=== PATIENT | female | born 1950 | race Native Hawaiian/Other Pacific Islander ===

== ENCOUNTER → 2021-04-25 | Outpatient (CLI) | payer MEDICARE, MEDICAID ==
[2021-04-25 08:55] LABS: CALCIUM 10.1 mg/dL (8.4-10.2); CREATININE, serum 0.81 mg/dL (0.57-1.11); POTASSIUM 4.6 mmol/L (3.5-4.5)
[2021-04-25 16:20] LABS: CORTISOL, AM (0800) 1 ug/dL (3-20)
== END ==
LOC: COL.LAB 07:39
PROVIDERS: Urology
DX: E27.8 Other specified disorders of adrenal gland (principal)

== ENCOUNTER 2021-05-18 12:07 | Day surgery (SDC) | payer MEDICARE, MEDICAID ==
[~2021-05-18] VITALS: Ht 134.6 cm; Wt 80.3 kg
[2021-05-18] VITALS (82 sets, daily range): BP systolic 101–142; BP diastolic 54–85; PULSE 73–100; TEMP 98.1–99.2; O2SAT 94–98
[2021-05-18] MEDS ORDERED: COZAAR100 MG PO (12:53)
[2021-05-18] MEDS ORDERED: TOPROL XL 25MG25 MG PO (12:54)
[2021-05-18] MEDS ORDERED: ASPIRIN E.C. 8181 MG PO (12:55)
[2021-05-18] MEDS ORDERED: GARLIC100 MG PO (12:56)
[2021-05-18] MEDS ORDERED: TYLENOL 500MG500 MG PO (12:57)
[2021-05-18 12:58] LABS: HEMATOCRIT 43.5 % (37.0-47.0); HEMOGLOBIN 13.9 g/dl (12.5-16.0); MEAN CELL VOLUME 90 fl (80.0-100.0); MEAN CORPUSCULAR HEMOGLOBIN 29 pg (27-31); MEAN CORPUSCULAR HGB CONC 32 g/dl (33.0-37.0); MEAN PLATELET VOLUME 10.1 fl (7.4-10.4); PLATELET COUNT 241 K/mm3 (130-400); RED BLOOD COUNT 4.83 M/mm3 (4.10-5.30); REDCELL DISTRIBUTION WIDTH-CV 13.2 % (11.5-14.5)
[2021-05-18 13:08] LABS: INR 1.1 (0.8-3.0); PROTHROMBIN TIME 12.6 SECONDS (9.7-12.8)
[2021-05-18 13:11] LABS: PARTIAL THROMBOPLASTIN TIME 27.9 SECONDS (26.0-37.0)
[2021-05-18 13:13] LABS: CALCIUM 9.5 mg/dL (8.4-10.2); CREATININE, serum 0.84 mg/dL (0.57-1.11); POTASSIUM 4.4 mmol/L (3.5-4.5)
--- NOTE | 2021-05-18 18:30 | NUR ---
PATIENT CAME OVER FROM [facility] AT APPROX 1545; TWO [employer] NURSES ACCOMPANIED THE PATIENT OVER AND REMAINED IN THE ROOM UNTIL APPROX 1700. PATIENT WAS IN STABLE CONDITION UPON ARRIVAL TO THE UNIT WITH PRESSURES SLIGHTLY ELEVATED. THE [employer] NURSES REMOVED THE ART LINE AND LATER REMOVED THE SHEATH FROM THE FEMORAL SITE. MINIMAL BLEEDING OCCURRED WHEN THE SHEATH WAS REMOVED AND THE GAUZE HAD A SPOT OF BLOOD APPROX PENCIL ERASER SIZE IN DIAMETER WHICH WAS COVERED IN A TEGADERM. RADIAL SITE HAD A TR BAND IN PLACE INFLATED TO 12ML, OF WHICH THE [employer] NURSE TOOK 2ML OUT BEFORE THEY LEFT. PATIENT HAD COMPLAINTS OF A HEADACHE AND WAS NAUSEOUS WHEN SHE GOT TO THE UNIT; [employer] NURSES GAVE ZOFRAN AND THIS NURSE GAVE A TYLENOL FOR HER HEADACHE. SYMPTOMS IMPROVED AND NAUSEA WAS GONE; MINIMAL HEADACHE REMAINS.
[2021-05-19] VITALS (54 sets, daily range): BP systolic 109–127; BP diastolic 60–69; PULSE 70–91; TEMP 98.4–99; O2SAT 72–97
--- NOTE | 2021-05-19 | NUR ---
PT SLEEPING SOUNDLY. RT FEMORAL SITE REMAINS SOFT, NO DRAINAGE TO DRSG BEYOND ONE INITIAL SPOT. WILL CONTINUE TO MONITOR.
--- NOTE | 2021-05-19 10:13 | NUR ---
PT left facility with son. PT has all belonging in her pocession, discharge sheet for signature will not print.
--- NOTE | 2021-05-19 10:28 | NUR ---
On discharge, RT Radial , RT femoral site clean dry intact. PT was educated on signs and symptoms of bleeding and what to do if bleeding was to happen. PT was walked out and son picked pt up.
== END 2021-05-19 11:00 | disposition home or self-care (01) ==
LOC: COL.CAR 12:07
PROVIDERS: Internal Medicine Cardiovascular Disease
DX: I25.10 Atherosclerotic heart disease of native coronary artery without angina pectoris (principal); E78.5 Hyperlipidemia, unspecified; I11.9 Hypertensive heart disease without heart failure; Q24.5 Malformation of coronary vessels; Z79.899 Other long term (current) drug therapy
CPT/HCPCS: C1894; J0360; J1644; J2250; J2405; J3010; J7030; Q9967